=== PATIENT | male | born 1955 | race Caucasian/White ===

== ENCOUNTER 2019-11-27 11:57 | Emergency (ER) | payer BC ==
[~2019-11-27] VITALS: Ht 188 cm; Wt 129.3 kg
[2019-11-27] MEDS ORDERED: PANTOPRAZOLE SO40 M2 PO (13:39)
[2019-11-27] MEDS ORDERED: XARELTO20 M1 PO (13:39)
[2019-11-27] MEDS ORDERED: AMOCLA875 PO (13:56)
== END 2019-11-27 14:23 | disposition home or self-care (01) ==
LOC: ER 11:57
DX: K52.9 Noninfective gastroenteritis and colitis, unspecified (principal)
CPT/HCPCS: 36415; 74176; 83605; 87040; 99283-25